=== PATIENT | female | born 1975 | race Caucasian/White ===

== ENCOUNTER 2018-12-19 22:10 | Emergency (ER) | payer MEDICARE, MEDICAID ==
[~2018-12-19] VITALS: Ht 147.3 cm; Wt 109.0 kg
[~2018-12-19 22:10] MED LIST: ASPI-1264 PO; CHOL200016 PO; CLON-527 PO; CYCLOBENZAPR PO; DIAZ2TAB PO; EXEN2VIA SQ; FAMO-1 PO; HYDR2TAB28 PO; LACT1CAP67 PO; LACT1CAP73 PO; LEVO25TA2 PO; LOP25T PO; MAG400T PO; MAGN100T3 PO; MAGN400C PO; METF1000 PO; METF500T7 PO; MOME17SP NS; MONT10TA21 PO; MONT5TAB12 PO; PANT-47 PO; POTA99TA15 PO; PYCNOGENOL PO; SYN0.025T PO
[2018-12-19 22:57] LABS: BASOPHILS % (AUTO) 0.3 % (0-1); EOSINOPHILS # (AUTO) 0.3 X10'3 (0-0.9); EOSINOPHILS % (AUTO) 2.4 % (0-6); HEMATOCRIT 46.6 % (35.0-45.0); HEMOGLOBIN 15.6 g/dl (12.0-16.0); LYMPHOCYTES # (AUTO) 2.3 X10'3 (1.1-4.8); LYMPHOCYTES % (AUTO) 16.7 % (21-51); MEAN CORPUSCULAR HEMOGLOBIN 30.7 PG (27.0-31.0); MEAN CORPUSCULAR HGB CONC 33.4 g/dL (33.0-36.5); MEAN CORPUSCULAR VOLUME 91.9 FL (78-98); MEAN PLATELET VOLUME 8.8 FL (7.4-10.4); MONOCYTES # (AUTO) 0.5 X10'3 (0-0.9); MONOCYTES % (AUTO) 3.9 % (2-12); NEUTROPHILS # (AUTO) 10.5 X10'3 (1.8-7.7); NEUTROPHILS % (AUTO) 76.7 % (42-75); PLATELET COUNT 296 X10'3 (140-440); RED BLOOD COUNT 5.07 X10'6 (4.20-5.60); RED CELL DISTRIBUTION WIDTH 13.8 % (11.5-14.5); WHITE BLOOD COUNT 13.7 X10'3 (4.5-11.0)
[2018-12-19] MEDS ORDERED: morphine 4 MG/ML inj SYRINge IV ONE (23:05)
[2018-12-19] MEDS ORDERED: ondansetron/PF 4mg/2ml inj IV ONE (23:05)
[2018-12-19 23:14] LABS: INR 0.9 INR; PARTIAL THROMBOPLASTIN TIME 26 SECONDS (22-32); PROTHROMBIN TIME 9.4 SECONDS (9.0-12.0)
[2018-12-19 23:15] LABS: ALANINE AMINOTRANSFERASE 109 U/L (12-78); ALBUMIN/GLOBULIN RATIO 1.1 (1.1-1.5); ALKALINE PHOSPHATASE 99 IU/L (46-116); ANION GAP 14 (8-16); ASPARTATE AMINO TRANSFERASE 177 U/L (10-37); BILIRUBIN,TOTAL 0.9 MG/DL (0.1-1.0); BLOOD UREA NITROGEN 19 MG/DL (7-18); BUN/CREATININE RATIO 16.5 (6.6-38.0); CALCIUM 9.1 MG/DL (8.5-10.1); CHLORIDE 100 MMOL/L (99-107); CREATININE 1.15 MG/DL (0.40-0.90); GLUCOSE 118 MG/DL (70-104); SODIUM 137 MMOL/L (135-145); TOTAL CARBON DIOXIDE 22.6 MMOL/L (24-32); TOTAL PROTEIN 7.8 G/DL (6.4-8.2); eGFR 52 ML/MIN
[2018-12-19 23:22] LABS: LIPASE 682 U/L (73-393)
[2018-12-19] MEDS ORDERED: normal saline 1000ml 1,000 ML IV ONE (23:40)
[2018-12-20] MEDS ORDERED: TRAM50TA2 PO (01:19)
[2018-12-20 02:51] VITALS: BP 144/77
[2018-12-21] MEDS ORDERED: ONDA8TAB6 PO (23:57)
== END 2018-12-20 02:52 | disposition home or self-care (01) ==
LOC: ER 22:11
DX: K85.90 Acute pancreatitis without necrosis or infection, unspecified (principal); K44.9 Diaphragmatic hernia without obstruction or gangrene; K21.9 Gastro-esophageal reflux disease without esophagitis; E11.9 Type 2 diabetes mellitus without complications; Z90.49 Acquired absence of other specified parts of digestive tract; Z98.51 Tubal ligation status; Z98.890 Other specified postprocedural states; Z88.1 Allergy status to other antibiotic agents; Z88.8 Allergy status to other drugs, medicaments and biological substances; Z79.82 Long term (current) use of aspirin; Z79.899 Other long term (current) drug therapy
CPT/HCPCS: 36415; 71045; 74176; 80053; 83690; 84484; 85025; 85610; 85730; 93005; 96374; 96375; 99284; J2270; J2405; J7030

== ENCOUNTER 2018-12-21 22:11 | Emergency (ER) | payer MEDICARE, MEDICAID ==
[~2018-12-21] VITALS: Ht 152.4 cm; Wt 106.0 kg
[~2018-12-21 22:11] MED LIST changes: +TRAM50TA2 PO
[2018-12-21 22:22] VITALS: BP 117/113
[2018-12-21 23:10] LABS: URINE HCG NEGATIVE (NEG)
[2018-12-21 23:22] LABS: CLARITY,URINE CLEAR (Clear); COLOR,URINE YELLOW (Yellow); GLUCOSE, URINE 500 mg/dl (Neg); KETONES,URINE 40 mg/dl (Neg); LEUKOCYTE ESTERASE ,URINE NEGATIVE (Neg); NITRITES, URINE NEGATIVE (Neg); OCCULT BLOOD,URINE MODERATE (Neg); PROTEIN,URINE NEGATIVE (Neg); UROBILINOGEN,URINE 0.2 E.U/dL (0.2-1.0)
[2018-12-21 23:23] LABS: UA COLLECTION TYPE CLN CATCH MIDSTREAM
[2018-12-21 23:24] LABS: ALANINE AMINOTRANSFERASE 213 U/L (12-78); ALBUMIN 3.7 G/DL (3.4-5.0); ALKALINE PHOSPHATASE 104 IU/L (46-116); AMYLASE 33 U/L (25-115); ANION GAP 16 (8-16); ASPARTATE AMINO TRANSFERASE 66 U/L (10-37); BILIRUBIN,TOTAL 0.5 MG/DL (0.1-1.0); BLOOD UREA NITROGEN 13 MG/DL (7-18); BUN/CREATININE RATIO 14.3 (6.6-38.0); CALCIUM 8.2 MG/DL (8.5-10.1); CHLORIDE 99 MMOL/L (99-107); CREATININE 0.91 MG/DL (0.40-0.90); GLUCOSE 71 MG/DL (70-104); LIPASE 197 U/L (73-393); SODIUM 136 MMOL/L (135-145); TOTAL CARBON DIOXIDE 21.4 MMOL/L (24-32); TOTAL PROTEIN 7.3 G/DL (6.4-8.2); eGFR 68 ML/MIN
[2018-12-21 23:27] LABS: BASOPHILS # (AUTO) 0.1 X10'3 (0-0.2); BASOPHILS % (AUTO) 0.7 % (0-1); EOSINOPHILS # (AUTO) 0.3 X10'3 (0-0.9); EOSINOPHILS % (AUTO) 4.2 % (0-6); HEMATOCRIT 41.9 % (35.0-45.0); HEMOGLOBIN 13.9 g/dl (12.0-16.0); LYMPHOCYTES # (AUTO) 2.6 X10'3 (1.1-4.8); LYMPHOCYTES % (AUTO) 34.3 % (21-51); MEAN CORPUSCULAR HEMOGLOBIN 30.5 PG (27.0-31.0); MEAN CORPUSCULAR HGB CONC 33.2 g/dL (33.0-36.5); MEAN CORPUSCULAR VOLUME 91.9 FL (78-98); MONOCYTES # (AUTO) 0.5 X10'3 (0-0.9); MONOCYTES % (AUTO) 6.8 % (2-12); NEUTROPHILS # (AUTO) 4.1 X10'3 (1.8-7.7); PLATELET COUNT 277 X10'3 (140-440); RED BLOOD COUNT 4.56 X10'6 (4.20-5.60); RED CELL DISTRIBUTION WIDTH 13.5 % (11.5-14.5); WHITE BLOOD COUNT 7.6 X10'3 (4.5-11.0)
[2018-12-21 23:28] LABS: PROTHROMBIN TIME 9.8 SECONDS (9.0-12.0)
[2018-12-21 23:45] LABS: BACTERIA,URINE FEW /HPF (Neg); MUCUS STRANDS FEW /LPF (Neg); RBC,URINE 0-2 /HPF (0-2); SQUAMOUS EPITHELIAL CELL,UR FEW /LPF (FEW); WBC,URINE 0-4 /HPF (0-4)
--- NOTE | 2018-12-21 23:51 | NUR ---
DR TELLEZ AT BEDSIDE WITH PT
[2018-12-21] MEDS ORDERED: ONDA8TAB6 PO (23:57)
[2018-12-22] MEDS ORDERED: ondansetron 4mg rapidly disintigrating tab PO ONE
== END 2018-12-22 00:09 | disposition home or self-care (01) ==
LOC: ER 22:11
DX: R10.9 Unspecified abdominal pain (principal); R11.0 Nausea; E11.9 Type 2 diabetes mellitus without complications; Z90.49 Acquired absence of other specified parts of digestive tract; Z98.51 Tubal ligation status; Z98.890 Other specified postprocedural states; Z88.1 Allergy status to other antibiotic agents; Z88.6 Allergy status to analgesic agent; Z88.8 Allergy status to other drugs, medicaments and biological substances; Z79.82 Long term (current) use of aspirin; Z79.84 Long term (current) use of oral hypoglycemic drugs; Z79.899 Other long term (current) drug therapy
CPT/HCPCS: 36415; 80053; 81001; 81025; 82150; 83690; 85025; 85610; 99283

== ENCOUNTER 2019-11-28 23:48 | Emergency (ER) | payer MEDICARE, MEDICAID ==
[~2019-11-28] VITALS: Ht 148.6 cm; Wt 101.4 kg
[~2019-11-28 23:48] MED LIST changes: +ADV50250 IH; -ASPI-1264 PO; +ASPI-611 PO; +CYCL-1 PO; -CYCLOBENZAPR PO; -DIAZ2TAB PO; +EMPA10TA PO; -EXEN2VIA SQ; -FAMO-1 PO; -HYDR2TAB28 PO; +LACT1CAP65 PO; -LACT1CAP67 PO; -LACT1CAP73 PO; -LEVO25TA2 PO; +LIOT5TAB10 PO; +LISI-600 PO; -LOP25T PO; -MAG400T PO; -MAGN100T3 PO; +MELO-102 PO; -METF1000 PO; +METF500T PO; -METF500T7 PO; -MOME17SP NS; -MONT5TAB12 PO; -PANT-47 PO; -POTA99TA15 PO; -PYCNOGENOL PO; +RANI150T8 PO; -SYN0.025T PO
--- NOTE | 2019-11-29 00:31 | NUR ---
while I was triaging this pt Dr Akins placed ordered on the chart. I asked him if he wanted me to put in a trop and he said he was signing it out to dr latif
[2019-11-29 01:31] VITALS: BP 139/88
--- NOTE | 2019-11-29 01:39 | NUR ---
assumed care from Jose De Jesus HLIL no questions or concerns after assuming care
--- NOTE | 2019-11-29 01:40 | NUR ---
dr. latif at bedside discussing hear score with patient, patients rr even un labored no observable s/s of acute stress / pain at this time will continue to monitor
== END 2019-11-29 02:32 | disposition home or self-care (01) ==
LOC: ER 23:49
DX: R07.89 Other chest pain (principal); I10 Essential (primary) hypertension; E11.9 Type 2 diabetes mellitus without complications; Z90.49 Acquired absence of other specified parts of digestive tract; Z98.890 Other specified postprocedural states; Z98.51 Tubal ligation status; Z88.1 Allergy status to other antibiotic agents; Z88.6 Allergy status to analgesic agent; Z79.82 Long term (current) use of aspirin; Z79.899 Other long term (current) drug therapy
CPT/HCPCS: 71046; 82948; 93005; 99283

== ENCOUNTER 2020-09-18 18:47 | Emergency (ER) | payer MEDICARE, MEDICAID ==
[~2020-09-18] VITALS: Ht 152.4 cm; Wt 106.2 kg
[2020-09-18] MEDS ORDERED: aspirin 81mg tab.chew PO ONE (19:05)
[2020-09-18 19:32] LABS: BASOPHILS # (AUTO) 0.1 X10'3 (0-0.2); BASOPHILS % (AUTO) 1.1 % (0-1); EOSINOPHILS # (AUTO) 0.6 X10'3 (0-0.9); EOSINOPHILS % (AUTO) 5.7 % (0-6); HEMATOCRIT 42.3 % (35.0-45.0); HEMOGLOBIN 14.1 g/dl (12.0-16.0); LYMPHOCYTES # (AUTO) 3.2 X10'3 (1.1-4.8); LYMPHOCYTES % (AUTO) 29.9 % (21-51); MEAN CORPUSCULAR HEMOGLOBIN 30.6 PG (27.0-31.0); MEAN CORPUSCULAR HGB CONC 33.3 g/dL (33.0-36.5); MEAN CORPUSCULAR VOLUME 91.7 FL (78-98); MEAN PLATELET VOLUME 8.7 FL (7.4-10.4); MONOCYTES # (AUTO) 0.6 X10'3 (0-0.9); MONOCYTES % (AUTO) 5.3 % (2-12); NEUTROPHILS # (AUTO) 6.3 X10'3 (1.8-7.7); PLATELET COUNT 272 X10'3 (140-440); RED BLOOD COUNT 4.61 X10'6 (4.20-5.60); RED CELL DISTRIBUTION WIDTH 12.8 % (11.5-14.5); WHITE BLOOD COUNT 10.8 X10'3 (4.5-11.0)
[2020-09-18 19:44] LABS: PARTIAL THROMBOPLASTIN TIME 26 SECONDS (22-32)
[2020-09-18 19:49] LABS: ALANINE AMINOTRANSFERASE 64 U/L (12-78); ALBUMIN 3.8 G/DL (3.4-5.0); ALKALINE PHOSPHATASE 69 IU/L (46-116); ANION GAP 8 (8-16); ASPARTATE AMINO TRANSFERASE 32 U/L (10-37); BILIRUBIN,TOTAL 0.3 MG/DL (0.1-1.0); BLOOD UREA NITROGEN 13 MG/DL (7-18); BUN/CREATININE RATIO 14.6 (6.6-38.0); CALCIUM 8.6 MG/DL (8.5-10.1); CHLORIDE 100 MMOL/L (99-107); CREATININE 0.89 MG/DL (0.40-0.90); GLUCOSE 115 MG/DL (70-104); POTASSIUM 4.2 MMOL/L (3.5-5.1); SODIUM 132 MMOL/L (135-145); TOTAL CARBON DIOXIDE 24.2 MMOL/L (24-32); TOTAL PROTEIN 7.6 G/DL (6.4-8.2); eGFR 69 ML/MIN
[2020-09-18 20:20] VITALS: BP 155/99
== END 2020-09-18 20:20 | disposition home or self-care (01) ==
LOC: ER 18:48
DX: R07.9 Chest pain, unspecified (principal); I10 Essential (primary) hypertension; K85.90 Acute pancreatitis without necrosis or infection, unspecified; E11.9 Type 2 diabetes mellitus without complications; K59.00 Constipation, unspecified; F41.9 Anxiety disorder, unspecified; K46.9 Unspecified abdominal hernia without obstruction or gangrene; Z98.890 Other specified postprocedural states; Z88.1 Allergy status to other antibiotic agents; Z88.8 Allergy status to other drugs, medicaments and biological substances; Z88.6 Allergy status to analgesic agent
CPT/HCPCS: 36415; 71045; 80053; 83880; 84484; 85025; 85610; 85730; 93005; 99285

== ENCOUNTER 2021-10-04 19:21 | Inpatient (IN) | payer MEDICARE, MEDICAID ==
[~2021-10-04] VITALS: Ht 157.5 cm; Wt 102.0 kg
[~2021-10-04 19:21] MED LIST changes: -LISI-600 PO; +LISI20TA28 PO
[2021-10-04 20:12] LABS: BASOPHILS # (AUTO) 0.1 X10'3 (0-0.2); EOSINOPHILS # (AUTO) 0.3 X10'3 (0-0.9); MEAN CORPUSCULAR HEMOGLOBIN 30.9 PG (27.0-31.0); RED CELL DISTRIBUTION WIDTH 13.1 % (11.5-14.5)
[2021-10-04 20:13] LABS: BASOPHILS % (AUTO) 1.2 % (0-1); EOSINOPHILS % (AUTO) 3.4 % (0-6); HEMATOCRIT 43.2 % (35.0-45.0); HEMOGLOBIN 14.5 g/dl (12.0-16.0); LYMPHOCYTES # (AUTO) 3.4 X10'3 (1.1-4.8); LYMPHOCYTES % (AUTO) 38.7 % (21-51); MEAN CORPUSCULAR HGB CONC 33.6 g/dL (33.0-36.5); MEAN PLATELET VOLUME 9.8 FL (7.4-10.4); MONOCYTES # (AUTO) 0.5 X10'3 (0-0.9); MONOCYTES % (AUTO) 5.5 % (2-12); NEUTROPHILS # (AUTO) 4.4 X10'3 (1.8-7.7); NEUTROPHILS % (AUTO) 51.2 % (42-75); PLATELET COUNT 127 X10'3 (140-440); RED BLOOD COUNT 4.69 X10'6 (4.20-5.60); WHITE BLOOD COUNT 8.7 X10'3 (4.5-11.0)
[2021-10-04 20:18] LABS: ALANINE AMINOTRANSFERASE 49 U/L (12-78); ALBUMIN 3.7 G/DL (3.4-5.0); ALBUMIN/GLOBULIN RATIO 1.1 (1.1-1.5); ALKALINE PHOSPHATASE 53 IU/L (46-116); ANION GAP 13 (8-16); ASPARTATE AMINO TRANSFERASE 27 U/L (10-37); BILIRUBIN,TOTAL 0.3 MG/DL (0.1-1.0); BLOOD UREA NITROGEN 14 MG/DL (7-18); BUN/CREATININE RATIO 14.6 (6.6-38.0); CALCIUM 8.7 MG/DL (8.5-10.1); CHLORIDE 103 MMOL/L (99-107); CREATININE 0.96 MG/DL (0.40-0.90); GLUCOSE 185 MG/DL (70-104); POTASSIUM 4.2 MMOL/L (3.5-5.1); SODIUM 138 MMOL/L (135-145); TOTAL CARBON DIOXIDE 22.5 MMOL/L (24-32); TOTAL PROTEIN 7.1 G/DL (6.4-8.2); eGFR 63 ML/MIN
[2021-10-04] MEDS ORDERED: iohexol 350MG/ML 100ml bottle IV ONE (20:35)
[2021-10-04] MEDS ORDERED: clopidogrel 300mg tablet PO ONE (20:35)
[2021-10-04] MEDS ORDERED: temazepam 15mg capsule PO PRN (21:00)
[2021-10-04] MEDS ORDERED: HYDROcodone/acetaminophen 10/325mg tab PO PRN (21:10)
[2021-10-04] MEDS ORDERED: ondansetron 4mg rapidly disintigrating tab PO PRN (21:10)
[2021-10-04] MEDS ORDERED: mag hydrox/Alum hydrox/simeth 30ml oral suspension PO PRN (21:10)
[2021-10-04] MEDS ORDERED: diphenhydrAMINE 50 mg/ml inj IV PRN (21:10)
[2021-10-04] MEDS ORDERED: morphine 2 MG/ML inj. syringe IV PRN ×2 (21:10)
[2021-10-04] MEDS ORDERED: diphenhydrAMINE 25mg capsule PO PRN (21:10)
[2021-10-04] MEDS ORDERED: magnesium hydroxide 30ml (MOM) UD suspension PO PRN (21:10)
[2021-10-04] MEDS ORDERED: acetaminophen 650mg rectal suppository RC PRN (21:10)
[2021-10-04] MEDS ORDERED: HYDROmorphone inj. 0.5 MG/0.5 ML DISP.SYRIN IV PRN (21:10)
[2021-10-04] MEDS ORDERED: ondansetron/PF 4mg/2ml inj IV PRN (21:10)
[2021-10-04] MEDS ORDERED: acetaminophen 325mg tablet PO PRN ×2 (21:10)
[2021-10-04] MEDS ORDERED: bisacodyl 10mg suppository rectal RC PRN (21:10)
[2021-10-04] MEDS ORDERED: HYDROcodone/acetaminophen 5mg/325mg tablet PO PRN (21:10)
[2021-10-04 21:32] LABS: HEMOGLOBIN A1C 6.6 % (4.5-6.2)
[2021-10-04] MEDS ORDERED: EXEN2AUT SQ (21:32)
[2021-10-04] MEDS ORDERED: PROG200C11 PO (21:32)
[2021-10-04] MEDS ORDERED: FAMO40TA8 PO (21:32)
[2021-10-04] MEDS ORDERED: ESTR2TAB6 PO (21:32)
[2021-10-04] MEDS ORDERED: METF-900 PO (21:32)
[2021-10-04] MEDS ORDERED: CLON-369 PO (21:32)
[2021-10-04 21:39] LABS: CREATINE KINASE 51 U/L (26-192); LIPASE 266 U/L (73-393); MAGNESIUM 2.2 MG/DL (1.5-2.4)
[2021-10-04] MEDS ORDERED: proCHLORperazine 10 MG/2 ml inj IV ONE (21:55)
[2021-10-04] MEDS: normal saline 1000ml 1,000 ML IV SCH (22:10)
[2021-10-04 22:14] LABS: PARTIAL THROMBOPLASTIN TIME 26 SECONDS (22-32)
[2021-10-04] MEDS: MESSAGE TO NURSING PO NR (22:33)
[2021-10-04] MEDS ORDERED: clonazePAM 0.5mg tablet PO PRN (23:35)
[2021-10-05 01:41] LABS: ALANINE AMINOTRANSFERASE 45 U/L (12-78); ALBUMIN 3.5 G/DL (3.4-5.0); ALKALINE PHOSPHATASE 52 IU/L (46-116); ANION GAP 13 (8-16); ASPARTATE AMINO TRANSFERASE 27 U/L (10-37); BILIRUBIN,TOTAL 0.2 MG/DL (0.1-1.0); BLOOD UREA NITROGEN 14 MG/DL (7-18); BUN/CREATININE RATIO 14.1 (6.6-38.0); CALCIUM 8.4 MG/DL (8.5-10.1); CHLORIDE 105 MMOL/L (99-107); CHOL/HDL RATIO 3.4 (0.00-4.99); CHOLESTEROL 169 MG/DL (0-200); CREATININE 0.99 MG/DL (0.40-0.90); GLUCOSE 154 MG/DL (70-104); HDL CHOLESTEROL 49 MG/DL (35-60); LDL CHOLESTEROL 94 MG/DL (50-100); SODIUM 139 MMOL/L (135-145); TOTAL CARBON DIOXIDE 21.4 MMOL/L (24-32); TRIGLYCERIDES 196 MG/DL (20-135); eGFR 61 ML/MIN
[2021-10-05 01:42] LABS: POTASSIUM 4.3 MMOL/L (3.5-5.1)
[2021-10-05 02:52] LABS: BASOPHILS # (AUTO) 0.1 X10'3 (0-0.2); BASOPHILS % (AUTO) 0.5 % (0-1); EOSINOPHILS # (AUTO) 0.2 X10'3 (0-0.9); HEMATOCRIT 41.7 % (35.0-45.0); HEMOGLOBIN 13.7 g/dl (12.0-16.0); LYMPHOCYTES # (AUTO) 1.9 X10'3 (1.1-4.8); LYMPHOCYTES % (AUTO) 19.8 % (21-51); MEAN CORPUSCULAR HEMOGLOBIN 30.5 PG (27.0-31.0); MEAN CORPUSCULAR HGB CONC 32.9 g/dL (33.0-36.5); MEAN CORPUSCULAR VOLUME 92.5 FL (78-98); MEAN PLATELET VOLUME 8.3 FL (7.4-10.4); MONOCYTES # (AUTO) 0.5 X10'3 (0-0.9); MONOCYTES % (AUTO) 5.5 % (2-12); NEUTROPHILS # (AUTO) 6.9 X10'3 (1.8-7.7); NEUTROPHILS % (AUTO) 72.2 % (42-75); PLATELET COUNT 266 X10'3 (140-440); RED BLOOD COUNT 4.51 X10'6 (4.20-5.60); RED CELL DISTRIBUTION WIDTH 13.2 % (11.5-14.5); WHITE BLOOD COUNT 9.6 X10'3 (4.5-11.0)
[2021-10-05] MEDS: normal saline 1000ml 1,000 ML IV SCH ×2 (07:10→17:10)
[2021-10-05] MEDS ORDERED: pantoprazole 40mg Tablet.DR PO SCH ×2 (07:30)
[2021-10-05] MEDS: aspirin 81mg, enteric-coated 1 TAB TABLET.DR PO SCH (08:22)
[2021-10-05] MEDS: heparin, porcine 5000 units/ml vial SQ SCH ×3 (08:22→18:40)
[2021-10-05] MEDS: docusate sod 100mg capsule PO SCH ×2 (08:23→20:00)
[2021-10-05] MEDS: atorvastatin 20mg tablet PO SCH (08:27)
[2021-10-05] MEDS: montelukast 10mg tablet PO SCH (08:27)
[2021-10-05] MEDS: cyclobenzaprine 10mg tablet PO SCH ×4 (08:28→21:00)
[2021-10-05] MEDS: famotidine 20mg tablet PO SCH ×2 (08:28→20:33)
[2021-10-05] MEDS: MESSAGE TO NURSING PO NR (08:50)
--- NOTE | 2021-10-05 11:11 | NUR ---
echo at bedside
[2021-10-05] MEDS: clopidogrel 75mg tablet PO SCH (18:38)
[2021-10-06] MEDS: heparin, porcine 5000 units/ml vial SQ SCH ×2 (01:35→10:48)
[2021-10-06 03:40] LABS: BASOPHILS # (AUTO) 0.1 X10'3 (0-0.2); BASOPHILS % (AUTO) 0.9 % (0-1); EOSINOPHILS # (AUTO) 0.2 X10'3 (0-0.9); EOSINOPHILS % (AUTO) 1.9 % (0-6); HEMATOCRIT 42.1 % (35.0-45.0); HEMOGLOBIN 14.2 g/dl (12.0-16.0); LYMPHOCYTES # (AUTO) 3.7 X10'3 (1.1-4.8); MEAN CORPUSCULAR HGB CONC 33.7 g/dL (33.0-36.5); MEAN CORPUSCULAR VOLUME 91.9 FL (78-98); MEAN PLATELET VOLUME 8.1 FL (7.4-10.4); MONOCYTES # (AUTO) 0.7 X10'3 (0-0.9); MONOCYTES % (AUTO) 8.3 % (2-12); NEUTROPHILS # (AUTO) 4.2 X10'3 (1.8-7.7); NEUTROPHILS % (AUTO) 46.9 % (42-75); PLATELET COUNT 276 X10'3 (140-440); RED BLOOD COUNT 4.58 X10'6 (4.20-5.60); RED CELL DISTRIBUTION WIDTH 13.4 % (11.5-14.5); WHITE BLOOD COUNT 8.9 X10'3 (4.5-11.0)
[2021-10-06 03:54] LABS: ALANINE AMINOTRANSFERASE 45 U/L (12-78); ALBUMIN 3.6 G/DL (3.4-5.0); ALBUMIN/GLOBULIN RATIO 1.1 (1.1-1.5); ALKALINE PHOSPHATASE 53 IU/L (46-116); ANION GAP 12 (8-16); ASPARTATE AMINO TRANSFERASE 21 U/L (10-37); BILIRUBIN,TOTAL 0.3 MG/DL (0.1-1.0); BLOOD UREA NITROGEN 17 MG/DL (7-18); CALCIUM 8.9 MG/DL (8.5-10.1); CHLORIDE 106 MMOL/L (99-107); GLUCOSE 138 MG/DL (70-104); POTASSIUM 4.2 MMOL/L (3.5-5.1); SODIUM 141 MMOL/L (135-145); TOTAL CARBON DIOXIDE 22.8 MMOL/L (24-32); eGFR 60 ML/MIN
[2021-10-06 07:53] VITALS: BP 144/98
[2021-10-06] MEDS: aspirin 81mg, enteric-coated 1 TAB TABLET.DR PO SCH (08:00)
[2021-10-06] MEDS: docusate sod 100mg capsule PO SCH (08:00)
[2021-10-06] MEDS: montelukast 10mg tablet PO SCH (08:00)
[2021-10-06] MEDS: clopidogrel 75mg tablet PO SCH (10:42)
[2021-10-06] MEDS: famotidine 20mg tablet PO SCH (10:44)
[2021-10-06] MEDS: cyclobenzaprine 10mg tablet PO SCH (10:45)
[2021-10-06] MEDS: atorvastatin 20mg tablet PO SCH (10:46)
[2021-10-06] MEDS: MESSAGE TO NURSING PO NR (10:52)
[2021-10-06 11:00] VITALS: BP 167/98
[2021-10-06] MEDS: normal saline 1000ml 1,000 ML IV SCH (12:01)
[2021-10-06] MEDS ORDERED: ATOR20TA66 PO (12:10)
[2021-10-06] MEDS ORDERED: CLOP75TA34 PO (12:10)
== END 2021-10-06 13:35 | disposition home or self-care (01) | DRG 64 ==
LOC: ER 19:22 → ED HOLD 21:13 → EDBEDREQ 10-05 19:45 → PCU 3S 10-06 07:30
PROVIDERS: ADMIT Family Medicine; ATTEND Internal Medicine
PROC: B3251ZZ Computerized Tomography (CT Scan) of Bilateral Common Carotid Arteries using Low Osmolar Contrast (ICD-10-PCS; 2021-10-04)
PROC: B32G1ZZ Computerized Tomography (CT Scan) of Bilateral Vertebral Arteries using Low Osmolar Contrast (ICD-10-PCS; 2021-10-04)
PROC: B32R1ZZ Computerized Tomography (CT Scan) of Intracranial Arteries using Low Osmolar Contrast (ICD-10-PCS; 2021-10-04)
PROC: B3281ZZ Computerized Tomography (CT Scan) of Bilateral Internal Carotid Arteries using Low Osmolar Contrast (ICD-10-PCS; 2021-10-04)
PROC: 5A09357 Assistance with Respiratory Ventilation, Less than 24 Consecutive Hours, Continuous Positive Airway Pressure (ICD-10-PCS; principal; 2021-10-05)
DX: I63.9 Cerebral infarction, unspecified (principal); I50.33 Acute on chronic diastolic (congestive) heart failure; Z68.43 Body mass index [BMI] 50.0-59.9, adult; G81.91 Hemiplegia, unspecified affecting right dominant side; E66.01 Morbid (severe) obesity due to excess calories; I11.0 Hypertensive heart disease with heart failure; E03.9 Hypothyroidism, unspecified; R29.701 NIHSS score 1; D69.6 Thrombocytopenia, unspecified; G43.109 Migraine with aura, not intractable, without status migrainosus; E11.65 Type 2 diabetes mellitus with hyperglycemia; E78.5 Hyperlipidemia, unspecified; G47.33 Obstructive sleep apnea (adult) (pediatric); K21.9 Gastro-esophageal reflux disease without esophagitis; R29.810 Facial weakness; F41.9 Anxiety disorder, unspecified; Z88.8 Allergy status to other drugs, medicaments and biological substances; Z90.49 Acquired absence of other specified parts of digestive tract; Z98.51 Tubal ligation status; Z79.899 Other long term (current) drug therapy; Z79.82 Long term (current) use of aspirin; Z98.891 History of uterine scar from previous surgery
CPT/HCPCS: 36415; 70450; 70496; 70498; 71045; 80053; 80061; 82550; 82948; 83036; 83690; 83735; 83880; 84100; 84484; 85025; 85610; 85730; 86885; 86900; 86901; 93005; 93306; 94660; 94760; 99285; G0378; J0780; J1644; J7030; Q9967

== ENCOUNTER 2025-07-02 12:11 | Emergency (ER) | payer MEDICARE, MEDICAID ==
[~2025-07-02] VITALS: Ht 147.3 cm; Wt 93.0 kg
[~2025-07-02 12:11] MED LIST changes: -ADV50250 IH; +ATOR20TA66 PO; -CHOL200016 PO; +CLON-369 PO; -CLON-527 PO; +CLOP75TA34 PO; -CYCL-1 PO; +FAMO40TA8 PO; -LACT1CAP65 PO; -LIOT5TAB10 PO; -MAGN400C PO; +METF-900 PO; -METF500T PO; +MONT-48 PO; -MONT10TA21 PO; -RANI150T8 PO; -TRAM50TA2 PO
--- NOTE | 2025-07-02 13:02 | Physician Documentation ---
History of Present Illness Chief Complaint: Abdominal Pain Stated Complaint: ABD PAIN Primary Medical Doctor: Dr Jose De Jesus Bryan @ [facility] Patient is a pleasant 50-year-old female that presents to the emergency department for back pain radiating to her abdomen. She reports that she usually has approximately 3 episodes of this year. Reports that the episodes usually resolve and are not progressive over the course of the week. Patient reports that she has burning in her flanks and has been experiencing some nausea. Denies any dysuria fevers congestion hematemesis hematuria or any blood in her stool. Patient reports significant discomfort. Patient denies any chest pain or shortness of breath or nausea or vomiting or diarrhea. Patient states this type of pain has been going on for the last 20 years or so off and on. She is working with a GI specialist and just recently had an upper endoscopy. Medication Reconciliation Allergies: Coded Allergies: clindamycin (Verified Allergy, Unknown, 07/02/25) gluten (Unverified Allergy, Unknown, 07/02/25) ketorolac (Verified Allergy, Unknown, 07/02/25) Scheduled Aspirin (Aspir 81), 1 TAB PO DAILY, (Reported) Atorvastatin Calcium (Atorvastatin Calcium), 40 MG PO DAILY Clopidogrel Bisulfate (Clopidogrel), 75 MG PO DAILY Empagliflozin (Jardiance), 1 TAB PO DAILY, (Reported) Famotidine (Famotidine), 1 TAB PO BID, (Reported) Lisinopril (Lisinopril), 0.5 TAB PO HS, (Reported) Meloxicam (Meloxicam), 1 TAB PO HS, (Reported) Metformin Hcl* (Metformin ER*), 2 TAB PO BID, (Reported) Montelukast Sodium (Singulair), 1 TAB PO DAILY, (Reported) Scheduled PRN Clonazepam (Clonazepam), 1 TAB PO DAILY PRN for for anxiety/agitation, (Re ported) Past Medical History Past Medical History: Migraine, *CARDIOVASCULAR*, Hypertension, *GI/HEPATOBILIARY*, Constipation, Pancreatitis, Hernia, Diabetes, Thyroid (unspecified), *PSYCH*, Anxiety Past Surgical History: cholecystectomy, , orthopedic surgeries, tubal ligation Alcohol Use: None Drug Use: none Lives with: Family Lives In: Home Occupation: disabled Review of Systems Constitutional: Denies: chills, fever, weakness Eyes: Denies: pain, blurred vision ENT: Denies: ear pain, nose pain, throat pain, mouth pain Respiratory: Denies: cough, shortness of breath Cardiovascular: Denies: chest pain, palpitations Gastrointestinal: Denies: abdominal pain, nausea, vomiting Genitourinary: Denies: burning, dysuria Female Genitalia: Denies: vaginal discharge, pelvic pain Neurological: Denies: headache, dizziness Musculoskeletal: Denies: pain, swelling Integumentary: Denies: rash, lesions Allergic/Immunologic: Denies: hives, itching Hematologic/Lymphatic: Denies: no symptoms reported Psychiatric: Denies: depression, anxiety Physical Exam Vital Signs: Temperature: 97.6, Source: Temporal, Heart Rate: 75, Respiratory Rate: 16, BP: 151/105, Pulse Oximetry: 99, Weight: 93.000 Oxygen Flow Rate: 0 Physical Exam General: Awake and Alert, no acute distress. HEENT: Conjunctiva pink, Sclera clear, Mucus Membranes moist. Neck: Supple without masses and tenderness. Resp: Unlabored. Lungs clear to auscultation bilaterally. Heart: Regular Rate and rhythm, normal S1 and S2 without murmur, rub or gallop. Abdomen: Abdomen on exam patient has mild diffuse tenderness in all quadrants without any rebound and without guarding and abdomen is soft and nondistended and no masses. Extremities: No cyanosis,clubbing or edema. Skin: Warm and Dry. Progress Results/Orders Results/Orders Vital Signs 07/02/25 12:33 Temp 97.6 Pulse 75 Resp 16 B/P (MAP) 151/105 Pulse Ox 99 O2 Flow Rate 0 EKG/XRAY/CT/US/VASC/MRI CT : Impression CAT SCAN Patient: RADHA LEAM Medical Record: [id number] [facility] : 1975, Age: 50 Sex: Female Location: ER Patient Status: REG ER Service Date/Time: 07/02/251515 Ordering Physician: KEVON NIETO PAC Exam: CT ABDOMEN PELVIS EXAM: CT CT ABDOMEN PELVIS W/ IV CONTRAST HISTORY: upper abd pain COMPARISON: None TECHNIQUE: Helical CT images of the abdomen and pelvis were performed with 100 mL omnipaque 300 IV contrast. Sagittal and coronal reformatted images were obtained. This CT exam was performed using 1 or more of the following dose reduction techniques: Automated exposure control, adjustment of the mA and/or kv according to patient size, or the use of iterative reconstruction techniques. Radiation Dose Information: CT Dose: CTDI volume is 33.59 mGy. Dose-length product is 1893.26 mGy*cm FINDINGS: CT abdomen: The lung bases are clear. The heart is not enlarged. The gallbladder is surgically absent. The liver, spleen, pancreas, kidneys, and adrenal glands are unremarkable. No abdominal aortic aneurysm or dissection. CT pelvis: No abnormal bowel dilatation, free air, or free fluid. The appendix, uterus, and urinary bladder are unremarkable. There is ventral midline pelvic wall fatty hernia with neck measuring 12 mm transverse (images 102-107, series 2). There is a lumbosacral transitional vertebrae. There is moderate lumbar degenerative disc disease and facet arthropathy. IMPRESSION: 1. Postoperative changes of cholecystectomy. 2. Small fatty ventral midline pelvic wall hernia. 3. No evidence of bowel obstruction, acute appendicitis, or other acute process in the abdomen or pelvis. Electronically Signed by:HOLLY IRENE MD Date & Time: 07/02/251622 Dictated by: HOLLY IRENE MD Dictation date and time: 07/02/251622 Primary Care Provider: NO PRIMARY CARE PROVIDER cc: KEVON NIETO PAC ~ Medical Decision Making Findings Patient is a pleasant 50-year-old female that presents to the emergency department for back pain radiating to her abdomen. She reports that she usually has approximately 3 episodes of this year. Reports that the episodes usually resolve and are not progressive over the course of the week. Patient reports that she has burning in her flanks and has been experiencing some nausea. Denies any dysuria fevers congestion hematemesis hematuria or any blood in her stool. Patient reports significant discomfort. Patient denies any chest pain or shortness of breath or nausea or vomiting or diarrhea. Patient states this type of pain has been going on for the last 20 years or so off and on. She is working with a GI specialist and just recently had an upper endoscopy. Patient did have relatively benign labs that were largely unremarkable other than mild leukocytosis. Patient did have elevation of her eosinophil count. Patient was given a L of normal saline as well as morphine 4 mg IV and patient states her symptoms are significantly improved. Patient did have CT scan of the abdomen that showed no significant abnormalities. Prescription of Bentyl sent to patient's pharmacy to be taken as prescribed. Patient will follow up with primary care in 3-5 days if no better as needed sooner. Continue close follow up with GI specialist. Return to ED with any worsening, concerning or changing symptoms. Departure Disposition: HOME / SELF CARE / HOMELESS Impression: Primary Impression: Abdominal pain Qualified Codes: R10.13 - Epigastric pain Condition: Improved Discharge Instructions: Abdominal Pain (Nonspecific) Additional Instructions: Patient did have relatively benign labs that were largely unremarkable other than mild leukocytosis. Patient did have elevation of her eosinophil count. Patient was given a L of normal saline as well as morphine 4 mg IV and patient states her symptoms are significantly improved. Patient did have CT scan of the abdomen that showed no significant abnormalities. Prescription of Bentyl sent to patient's pharmacy to be taken as prescribed. Patient will follow up with primary care in 3-5 days if no better as needed sooner. Continue close follow up with GI specialist. Return to ED with any worsening, concerning or changing symptoms. Referrals: NO PRIMARY CARE PROVIDER (PCP) Prescriptions Dicyclomine HCl (Dicyclomine HCl) 20 Mg Tablet 1 TAB PO Q6H for irritable bowel symptoms for 15 Days, #60 TAB 0 Refills Prov: KEVON NIETO 07/02/25 Signature Scribe Signature: No scribe Attestation: No scribe EVE BULLARDP Jul 02, 2025 13:02 KEVON NIETO Jul 02, 2025 16:36
--- NOTE | 2025-07-02 13:15 | ELECTROCARDIOGRAPH REPORT ---
[facility] Test Date: 2025-07-02 Test Time: 13:13:08 Pat Name: RADHA LEMA Department: EMERGENCY ROOM Room: Gender: F Head Housekeeper: ARMINDA : 1975 Requested By: EVE BULLARD Order Number: [id number] Reading MD: Measurements Intervals Saxis Rate: 71 P: 23 OR: 145 QRS: 14 QRSD: 90 T: 45 QT: 383 QTc: 417 Interpretive Statements Sinus rhythm Please click the below link to view image of tracing.
[2025-07-02 14:00] LABS: CREATININE 0.98 MG/DL (0.40-0.90); TOTAL CARBON DIOXIDE 27.9 MMOL/L (24-32); eCRCL 45 ML/MIN; eGFR 60 ML/MIN
[2025-07-02 14:28] LABS: URINE HCG NEGATIVE (NEG)
[2025-07-02 15:15] LABS: MEAN PLATELET VOLUME 9.7 FL (7.4-10.4); RED CELL DISTRIBUTION WIDTH 14.0 % (11.5-14.5)
[2025-07-02] MEDS ORDERED: iohexol 300mg/ml 100ml inj. ONE (15:37)
[2025-07-02] MEDS: morphine 4 MG/ML inj SYRINge IV STA (15:40)
[2025-07-02] MEDS: acetaminophen 1,000mg/100ml IV 100 ML IV STA (15:57)
[2025-07-02] MEDS: normal saline 1000ml 1,000 ML IV STA (15:57)
[2025-07-02 15:59] LABS: EOSINOPHILS % (MANUAL) 31.0 % (0-6); LYMPHOCYTES % (MANUAL) 21.0 % (21-51); MONOCYTES % (MANUAL) 8.0 % (2-12); NEUTROPHILS % (MANUAL) 40.0 % (42-75)
[2025-07-02 16:00] LABS: PLATELET ESTIMATE NORMAL
--- NOTE | 2025-07-02 16:26 | RADIOLOGY REPORT ---
EXAM: CT CT ABDOMEN PELVIS W/ IV CONTRAST HISTORY: upper abd pain COMPARISON: None TECHNIQUE: Helical CT images of the abdomen and pelvis were performed with 100 mL omnipaque 300 IV co ntrast. Sagittal and coronal reformatted images were obtained. This CT exam was performed using 1 or more of the following dose reduction techniques: Automated exposure control, adjustment of the mA and /or kv according to patient size, or the use of iterative reconstruction techniques. Radiation Dose Information: CT Dose: CTDI volume is 33.59 mGy. Dose-length product is 1893.26 mGy*cm FINDINGS: CT abdomen: The lung bases are clear. The heart is not enlarged. The gallbladder is surgically absent . The liver, spleen, pancreas, kidneys, and adrenal glands are unremarkable. No abdominal aortic aneu rysm or dissection. CT pelvis: No abnormal bowel dilatation, free air, or free fluid. The appendix, uterus, and urinary b ladder are unremarkable. There is ventral midline pelvic wall fatty hernia with neck measuring 12 mm transverse (images 102-107, series 2). There is a lumbosacral transitional vertebrae. There is moder ate lumbar degenerative disc disease and facet arthropathy. IMPRESSION: 1. Postoperative changes of cholecystectomy. 2. Small fatty ventral midline pelvic wall hernia. 3. No evidence of bowel obstruction, acute appendicitis, or other acute process in the abdomen or pel vis.
[2025-07-02 17:02] VITALS: TEMP 98.2
[2025-07-02] MEDS ORDERED: DICY20TA17 PO (17:19)
[2025-07-02 17:40] VITALS: BP 130/69; PULSE 67; RESP 15; O2SAT 100
== END 2025-07-02 17:43 | disposition home or self-care (01) ==
LOC: ER 12:11
DX: R10.84 Generalized abdominal pain (principal); R11.0 Nausea; M54.9 Dorsalgia, unspecified; E11.9 Type 2 diabetes mellitus without complications; I10 Essential (primary) hypertension; Z88.1 Allergy status to other antibiotic agents; Z88.8 Allergy status to other drugs, medicaments and biological substances; Z90.49 Acquired absence of other specified parts of digestive tract; Z98.51 Tubal ligation status
CPT/HCPCS: 36415; 74177; 80053; 81025; 83605; 83690; 84145; 85025; 93005; 96365; 96375; 99285; J0131; J2270; J7030; Q9967; 85007

== ENCOUNTER 2025-10-01 00:39 | Emergency (ER) | payer MEDICARE, MEDICAID ==
[~2025-10-01] VITALS: Ht 147.3 cm; Wt 93.9 kg
[~2025-10-01 00:39] MED LIST changes: +DICY20TA17 PO
[2025-10-01] MEDS: HYDROcodone/acetaminophen 5mg/325mg tablet PO STA (01:27)
--- NOTE | 2025-10-01 01:27 | RADIOLOGY REPORT ---
EXAM: DI ANKLE, COMPLETE(3VW MIN) HISTORY: FOOT PAIN RIGHT COMPARISON: None TECHNIQUE: DI ANKLE, COMPLETE(3VW MIN) FINDINGS/IMPRESSION: There is widening of both the medial and lateral clear spaces suggesting unstable ankle injury. There is a suspected displaced fracture of the proximal fibula, incompletely assessed. Dedicated additional radiographs of the fibula are suggested. The constellation of findings suggests Maisonneuve fracture.
--- NOTE | 2025-10-01 01:59 | Physician Documentation ---
History of Present Illness ~ Chief Complaint: Ankle pain Stated Complaint: RIGHT FOOT PAIN Time Seen by MD: 01:39 Primary Medical Doctor: Dr Jose De Jesus Bryan @ [facility] Patient presents to the emergency room with right ankle pain. She states she was wrestling around with her son in the house and suddenly she felt ankle pain fell down. No head strike. And able to bear weight. Tetanus witin 5 years: No (unknown) Medication Reconciliation Allergies: Coded Allergies: clindamycin (Verified Allergy, Unknown, 07/02/25) gluten (Unverified Allergy, Unknown, 07/02/25) ketorolac (Verified Allergy, Unknown, 07/02/25) Scheduled Aspirin (Aspir 81), 1 TAB PO DAILY, (Reported) Atorvastatin Calcium (Atorvastatin Calcium), 40 MG PO DAILY Clopidogrel Bisulfate (Clopidogrel), 75 MG PO DAILY Dicyclomine HCl (Dicyclomine HCl), 1 TAB PO Q6H Empagliflozin (Jardiance), 1 TAB PO DAILY, (Reported) Famotidine (Famotidine), 1 TAB PO BID, (Reported) Lisinopril (Lisinopril), 0.5 TAB PO HS, (Reported) Meloxicam (Meloxicam), 1 TAB PO HS, (Reported) Metformin Hcl* (Metformin ER*), 2 TAB PO BID, (Reported) Montelukast Sodium (Singulair), 1 TAB PO DAILY, (Reported) Ondansetron 8mg ODT (Ondansetron Odt), 1 TAB PO Q6H Scheduled PRN Clonazepam (Clonazepam), 1 TAB PO DAILY PRN for for anxiety/agitation, (Reported) Hydrocodone Bit/Acetaminophen 5/325 MG (Kiowa 5/325 MG), 1-2 TAB PO Q4-6 hours PRN for pain Past Medical History Past Medical History: Migraine, *CARDIOVASCULAR*, Hypertension, *GI/HEPATOBILIARY*, Constipation, Pancreatitis, Hernia, Diabetes, Thyroid (unspecified), *PSYCH*, Anxiety Past Surgical History: cholecystectomy, , orthopedic surgeries, tubal ligation Alcohol Use: None Drug Use: none Lives with: Family Lives In: Home Occupation: disabled Review of Systems ROS All review of systems negative except as per HPI Physical Exam Vital Signs: Temperature: 98.2, Source: Temporal, Heart Rate: 89, Respiratory Rate: 18, BP: 150/90, Pulse Oximetry: 100, Weight: 93.900 Oxygen Flow Rate: 0 General Appearance General: Patient is awake, alert, oriented x4 in no acute distress Head: Normocephalic and atraumatic. Eyes: Conjunctival normal. EOMI. PERRL. ENT: Mucous membranes moist. Neck: Supple, trachea is midline. Chest: Clear to auscultation bilaterally without rales, rhonchi, or wheezes. There is no accessory muscle use or retractions. Cardiac: RRR without murmurs, gallops, or rubs. Abd: Soft, nondistended, nontender, with normoactive bowel sounds. No guarding, rebound, or rigidity. Extremities: Left lower extremity normal, right lower extremity with swelling to ankle and tenderness to palpation to calf and ankle. 2+ dorsalis pedis pulse. Progress Results/Orders Results/Orders Orders - HUGH PRYOR MD Ankle, Complete(3vw Min) (10/01/25 01:08) Knee Limited (Ap/Lat) (10/01/25 02:01) Completed Orders - HUGH PRYOR MD Ankle, Complete(3vw Min) (10/01/25 01:08) Hydrocodone/Apap 5/325mg Tab (Kiowa 5/32 (10/01/25 00:52) Knee Limited (Ap/Lat) (10/01/25 02:01) Morphine 4mg/Ml Inj. (Morphine Inj.) (10/01/25 01:50) Ondansetron Disint. Tablet (Zofran Odt T (10/01/25 01:50) Hydrocodone/Apap 5/325mg Tab (Kiowa 5/32 (10/01/25 02:15) Medications Received in ER Medications (Trade) Dose Ordered Sig/Alireza Route PRN Reason Start Time Stop Time Status Last Admin Dose Admin (Kiowa 5/325mg tablet) 1 tab ONCE STAT PO 10/01/25 00:52 10/01/25 00:53 DC 10/01/25 01:27 1 TAB (morphine inj.) 4 mg ONCE ONCE IM 10/01/25 01:50 10/01/25 01:58 DC 10/01/25 02:02 4 MG (Zofran ODT tablet) 4 mg ONCE ONCE PO 10/01/25 01:50 10/01/25 01:52 DC 10/01/25 02:02 4 MG (Kiowa 5/325mg tablet) 2 tab ONCE ONCE PO 10/01/25 02:15 10/01/25 02:19 DC 10/01/25 02:54 2 TAB Vital Signs 10/01/25 10/01/25 00:44 03:12 Temp 98.2 98.6 Pulse 89 82 Resp 18 18 B/P (MAP) 150/90 142/86 Pulse Ox 100 99 O2 Flow Rate 0 Medical Decision Making Additional information obtaine: N/A Findings Patient presents to the emergency room with right ankle pain as per HPI. Differentials include but are not limited to fractures, dislocation, soft tissue injury, nerve or vessel injury. Physical exam is reassuring for strong pulses and good movement of toes. X-ray is consistent with Maisonneuve fracture. This was discussed with orthopedist, Dr. Barney, who that has taken down the patient's name in his instructed her to call his office the next morning to expedite intervention. ER precautions reviewed regarding symptoms of compartment syndrome. General Diff Dx:Considerations: Include: Abrasion, Contusion, Fracture, Hematoma, Laceration, Malunion, Neurovascular injury, Open fracture, Sprain, Ulcer, Other Knee Diff Dx:Considerations: Include: Abrasion, Arthritis, Contusion, DJD, Fracture-femur, Fracture-fibula, Fracture-patella, Fracture-tibia, Gout, Hematoma, Laceration, Meniscus injury, Neurovascular injury, Open fracture, Rheumatoid arthritis, Septic, Sprain, Sprain-MCL, Sprain-LCL, Sprain-ACL, Sprain-PCL, Other Ankle Diff Dx:Considerations: Include: Abrasion, Arthritis, Contusion, DJD, Fracture-metatarsal, Fracture-fibula, Fracture-tarsal, Fracture-tibia, Gout, Hematoma, Laceration, Malunion, Neurovascular injury, Nonunion, Open fracture, Osteomyelitis, Rheumatoid arthritis, Sprain, Septic, Ulcer, Other Foot Diff Dx:Considerations: Include: Abrasion, Arthritis, Cellulitis, Contusion, Dislocation, DJD, Fracture-metatarsal, Fracture-phalynx, Fracture- tarsal, Gout, Hematoma, Ingrown toenail, Laceration, Malunion, Neurovascular injury, Open fracture, Paronychia, Puncture, Rheumatoid, Sprain, Septic, Subungual hematoma, Ulcer, Other Toe Diff Dx:Considerations: Include: Abrasion, Cellulitis, Contusion, Dislocation, Felon, Fracture, Hematoma, Laceration, Neurovascular injury, Open fracture, Paronychia, Subungual hematoma, Other Departure Disposition: 01 HOME / SELF CARE / HOMELESS Impression: Primary Impression: Closed Maisonneuve fracture Condition: Stable Discharge Instructions: Tibial and Fibular Fractures Additional Instructions: Call Dr. Barney's office tomorrow morning to arrange expedited intervention. Return to the emergency room for uncontrolled pain were symptoms of compartment syndrome as discussed Referrals: NO PRIMARY CARE PROVIDER (PCP) IRVING BARNEY Jr., MD Prescriptions Ondansetron 8mg ODT (Ondansetron Odt) 8 Mg Tab.rapdis 1 TAB PO Q6H for nausea/vomiting for 3 Days, #12 TAB 0 Refills Prov: HUGH PRYOR MD 10/01/25 Hydrocodone Bit/Acetaminophen 5/325 MG (Kiowa 5/325 MG) 5 Mg/325 Mg Tablet 1-2 TAB PO Q4-6 hours PRN for pain, #12 TAB Prov: HUGH PRYOR MD 10/01/25 Education Educated: Patient Educated regarding: diagnosis, treatment, need for follow up Signature Scribe Signature: No scribe Attestation: The note accurately reflects work and decisions made by me.Hugh Pryor MD 10/01/25 02:27 HUGH PRYOR MD Oct 01, 2025 01:59
[2025-10-01] MEDS: ondansetron 4mg rapidly disintigrating tab PO ONE (02:02)
[2025-10-01] MEDS: morphine 4 MG/ML inj SYRINge IM ONE (02:02)
--- NOTE | 2025-10-01 02:40 | RADIOLOGY REPORT ---
EXAM: DI KNEE LIMITED (AP/LAT) CLINICAL INDICATION: suspected prox fibula fx RIGHT TECHNIQUE: DI KNEE LIMITED (AP/LAT) Comparison: None FINDINGS/IMPRESSION: There is an oblique mildly displaced fracture of the proximal fibular diaphysis. No additional fracture of the tibia or distal femur. No significant joint effusion.
[2025-10-01] MEDS: HYDROcodone/acetaminophen 5mg/325mg tablet PO ONE (02:54)
[2025-10-01] MEDS ORDERED: HYDR-3965 PO (03:02)
[2025-10-01] MEDS ORDERED: ONDA-245 PO (03:02)
[2025-10-01 03:12] VITALS: BP 142/86; PULSE 82; RESP 18; TEMP 98.6; O2SAT 99
== END 2025-10-01 03:15 | disposition home or self-care (01) ==
LOC: ER 00:39
DX: S82.861A Displaced Maisonneuve's fracture of right leg, initial encounter for closed fracture (principal); E11.9 Type 2 diabetes mellitus without complications; I10 Essential (primary) hypertension; G43.909 Migraine, unspecified, not intractable, without status migrainosus; Z87.19 Personal history of other diseases of the digestive system; Z88.1 Allergy status to other antibiotic agents; Z79.82 Long term (current) use of aspirin; Z88.8 Allergy status to other drugs, medicaments and biological substances; Z90.49 Acquired absence of other specified parts of digestive tract; Z98.51 Tubal ligation status; X58.XXXA Exposure to other specified factors, initial encounter; Y93.72 Activity, wrestling; Y92.89 Other specified places as the place of occurrence of the external cause; Y99.8 Other external cause status
CPT/HCPCS: 73560; 73610; 96372; 99284; J2270; L4360

== ENCOUNTER 2025-10-13 09:56 | Day surgery (SDC) | payer MEDICARE, MEDICAID ==
[~2025-10-13] VITALS: Ht 147.3 cm; Wt 94.1 kg
[2025-10-13] VITALS (14 sets, daily range): BP systolic 147–176; BP diastolic 78–104; PULSE 74–97; RESP 16; TEMP 98.5; O2SAT 89–100
[2025-10-13] MEDS: ceFAZolin 2gm/dext,iso 50mL 50 ML IV ONE (05:30)
[~2025-10-13 09:56] MED LIST changes: +ACET1TAB25 PO; -ATOR20TA66 PO; +BACL20TA2 PO; -CLON-369 PO; -CLOP75TA34 PO; -DICY20TA17 PO; -EMPA10TA PO; +EMPA25TA PO; +EREN70AU SUBCUT; +FAMO20TA8 PO; -FAMO40TA8 PO; +FEXO180T94 PO; +FOLI0.8C PO; +HYDR-3973 PO; +LISI10TA27 PO; -LISI20TA28 PO; -MELO-102 PO; -MONT-48 PO; +ONDA-245 PO; +RIME75TA PO; +THY60T PO
[2025-10-13 11:56] LABS: MEAN PLATELET VOLUME 7.8 FL (7.4-10.4); PRE OP HEMATOCRIT 41.5 % (35.0-45.0); PRE OP HEMOGLOBIN 13.8 g/dL (12.0-16.0); PRE OP PLATELET COUNT 356 X10'3 (140-440); PRE OP WHITE BLOOD COUNT 10.6 10'3 (4.8-10.8); RED CELL DISTRIBUTION WIDTH 13.5 % (11.5-14.5)
[2025-10-13] MEDS: ringers solution, lacted 1,000 ML IV SCH (12:04)
[2025-10-13 12:15] LABS: CREATININE 0.74 MG/DL (0.40-0.90); PRE OP ALT 18 U/L (30-65); PRE OP ANION GAP 11 (8-16); PRE OP AST 17 U/L (10-37); PRE OP BILIRUB, TOTAL 0.4 MG/DL (0.0-1.0); PRE OP GLUCOSE 109 MG/DL (70-104); PRE OP POTASSIUM 4.2 MMOL/L (3.4-5.1); PRE OP SODIUM 139 MMOL/L (135-145); TOTAL CARBON DIOXIDE 26.9 MMOL/L (24-32); eCRCL 59 ML/MIN; eGFR 83 ML/MIN
[2025-10-13 12:16] LABS: HCG SERUM QL POSITIVE
[2025-10-13] MEDS ORDERED: bacitracin 15gm ointment TP ONE (13:51)
[2025-10-13] MEDS ORDERED: BUPIVAcaine 2.5mg/ml inj 50ml vial (contains preservative) ONE (13:51)
[2025-10-13] MEDS ORDERED: MIDAZolam 1 MG/ML 5ML VIAL ONE (14:21)
[2025-10-13] MEDS ORDERED: fentaNYL /PF 50mcg/ml 5ml ampule ONE (14:35)
[2025-10-13] MEDS ORDERED: propofol inj 20 ML IV ONE (14:36)
[2025-10-13] MEDS ORDERED: LIDOcaine 1%/PF 5ML 10 MG/ML VIAL ONE (14:36)
[2025-10-13] MEDS ORDERED: fentaNYL/PF 50MCG/1 ML 2ML syringe IV PRN ×2 (15:05)
[2025-10-13] MEDS ORDERED: HYDROmorphone/PF 0.2 MG/ML SYRINGE IV PRN ×2 (15:05)
[2025-10-13] MEDS ORDERED: enalaprilat 1.25mg/ml 2ml vial IV PRN (15:05)
[2025-10-13] MEDS ORDERED: ringers solution, lacted 1,000 ML IV SCH (15:05)
[2025-10-13] MEDS ORDERED: labetalol 20mg/4ml (5mg/ml) syringe IV PRN (15:05)
--- NOTE | 2025-10-13 15:09 | ANESTHESIA RECORDS ---
Nerve Block Providers to CC ~ Diagnosis: Nerve Block requested by: LIBBY YUSUF DPKristin Neuraxial/Peripheral Nerve Block requested for Post-operative analgesia by Physician above DIAGNOSIS: Post-operative pain. (Body Area) Shoulder: [ ] Arm: [ ] Hand: [ ] Hip: [ ] Knee: [ ] Ankle: [____Right ] Foot: [ ] Leg: [ ] Abdomen: [ ] Other: [ ] Post-operative pain expected to be/is inadequately managed by oral or IV medicines. Regional anesthetic expected to facilitate rehabilitation and/or discharge from facility. Other:[ ] Procedure Performed: Popliteal Lateral: Right Time out Done?: Yes Time of Time out: 14:10 Procedure Details: PROCEDURE DETAILS: Risks, benefits and alternatives explained Informed consent obtained, and patient wishes to proceed Conscious sedation with indicated monitors Patient positioned, pertinent anatomy defined, sterile technique used Needle used: [ ] 3 1/8 inch Stimuplex Ultra 22ga [x ] 4 inch Stimuplex Ultra 20ga [ ] 6 inch Stimuplex Ultra 20ga [ ] 6 inch, Quikbloc over the needle catheter set 20ga [ ] 4 inch Quikbloc over the needle catheter set 20ga [ ]Other: [ ] Loss of twitch @ [ 0.4 ____]mA [x ] Single Injection [ ] Catheter Ultrasound Guidance Used: [x ] Yes [ ] No Attempts:[ once ] Medicines injected: [x ]Clonidine Amt:[ 70 mcgs ____] [x ]Dexamethasone Amt:[____4 mgs ] [x ]Ropivacaine Amt:[ 0.5% 30 cc ] [ ]Bupivacaine Amt:[ ] [ ]Lidocaine Amt:[ ] [ ]Exparel 1.33%:[ ] [ ]Epinephrine Amt[ ] [ ]Other: [ ] Intermittent aspiration during local anesthetic administration No symptoms of intraneural or intravenous injection Patient tolerated procedure well Comments Right Popliteal fossa Block Pt in Lt lateral position with Left Leg flexed at 90 Degrees. Lateral approach. Ultrasound probe placed back of thigh 2 inches above the knee joint. Easy visualization of the Sciatic nerve. 1% xylocaine local anesthetic. Easy visualization of Spreading of local anesthetic anterior and posterior to the Sciatic nerve sub paraneurally inside sciatic nerve sheath. Meaningful conversation t throughout. No Pain or discomfort during injection. TRIPURANENI,ALIE MD Oct 13, 2025 15:09
[2025-10-13] MEDS: BUPIVAcaine/PF 5 MG/ML 10ML VIAL IJ ONE (15:21)
[2025-10-13] MEDS ORDERED: ondansetron/PF 4mg/2ml inj ONE (15:40)
[2025-10-13] MEDS ORDERED: ROPIVAcaine 0.5% (5mg/ml) 30ml vial ONE (15:41)
[2025-10-13] MEDS: morphine 4 MG/ML inj SYRINge IV PRN (16:16)
[2025-10-13] MEDS: acetaminophen 1,000mg/100ml IV 100 ML IV PRN (16:16)
[2025-10-13] MEDS: ondansetron/PF 4mg/2ml inj IV PRN (17:03)
--- NOTE | 2025-10-14 01:11 | OPERATIVE REPORT ---
DATE OF SURGERY: 10/13/2025 DICTATING PHYSICIAN: CLIVE ESCUDERO DPM PREOPERATIVE DIAGNOSES: Right ankle fracture, right ankle syndesmosis disruption and right ankle deltoid disruption and right ankle instability. POSTOPERATIVE DIAGNOSES: Right ankle fracture, right ankle syndesmosis disruption and right ankle deltoid disruption and right ankle instability. PROCEDURES PERFORMED: * Syndesmosis stress examination * Deltoid ligament stress examination * Syndesmosis stabilization * Deltoid ligament repair and augmentation. This is all on the right ankle. SURGEON: Clive Escudero DPM DIRECTOR TELEVISION: Dr. Joseph Mata DPM fellow, assistance was needed to decrease tourniquet time, help with deficiency and retraction throughout the entirety of the procedure. ANESTHESIA: General. HEMOSTASIS: A thigh tourniquet at 300 mmHg. FINDINGS: None. COMPLICATIONS: None. SPECIMENS: None. ESTIMATED BLOOD LOSS: Less than 15 mL. HARDWARE: We used Sandwich anchors. INDICATIONS: The patient was presented to my clinic with the above-listed complaints, which have been unresponsive to conservative treatment options. Thus, surgical options have been offered along with all potential risks, complications, and surgical outcomes being fully explained to the patient with understanding. No guarantees were given. Clinical and radiographic data correlated with the above diagnosis. The patient sustained a Maisonneuve type fibular fracture with syndesmosis instability. There was noted to be increasing gravity stress instability at the ankle joint. We talked to the patient about the biomechanics of the patient's ankle joint. We recommended surgical intervention in order to achieve appropriate stability and placement of the patient's ankle joint. The patient ultimately agreed to this, but had major concerns about the use of hardware. She states that she is a [employer], so she does not want any hardware. She seemed to change some of her ideas today before surgical intervention and we did explain to her that if we needed to place more hardware, then we would, but the goal was to better stabilize her ankle as there was gross instability. Ultimately, she was hoping and wishing for no hardware construct, which limited some of our constructs that we could use. She understood that this is a hard procedure in order to fix as she is 13 days post injury. She already has a severe flatfoot and was being treated for posterior tibial tendon dysfunction previously, so this automatically puts her at increased stress and valgus at this ankle. I did explain to her the risks and benefits and the patient wished to proceed. DESCRIPTION OF PROCEDURE: The patient was brought to the operating room and placed on the operating table in the supine position. The patient was induced under general anesthesia. The foot and ankle were prepped and draped in the usual aseptic fashion. Previously applied thigh tourniquet was inflated to 300 mmHg after a timeout was called and preoperative antibiotics were given and dosed appropriately. Stress examination of the syndesmosis and the deltoid. We then used fluoroscopic imaging with a big C-arm in order to stress the syndesmosis and deltoid. We did this with fluoroscopic guidance with manual manipulation and it was noted that there was increase in diastasis of the tib-fib complex as well as of the tib-talar complex medially for a deltoid. It was then decided that both syndesmosis and deltoid was going to be appropriate. We mapped out our incision on the lateral aspect of the patient's fibula and a standard lateral incision was then made using a #15 blade. We carefully dissected down to the level of subcutaneous tissue with care being taken to identify and retract all vital neurovascular structures. After this, we then dissected down to the level of deep fascia and bone. We identified the lateral fibula. After this, we then used a clamp in order to clamp the tib-fib complex into an appropriate reduced position. Using our novel technique with Sandwich anchors, we then placed a byuvlmm-cpt-nncafem drill of the fibula from lateral to medial. We then used a separate drill for a 2.5 anchor into the distal lateral tibia. We then malleted our 2.5 anchors into the distal tibia. We then threaded our attached sutures through our drill holes of our fibula. Holding our fibula and tib-fib diastasis closed and syndesmosis reduced, we then placed three 4.75 Sandwich anchors using a tenodesis technique with the suture intact. We did this until there was excellent stability. We then malleted these in appropriately. After this, we then stressed the patient's syndesmosis and it was noted that there was no increase in diastasis. The patient's tib-fib overlap had drastically improved. After this, we then made a separate incision over the deltoid ligamentous complex. We made this incision using a #15 blade and carefully dissected down to the reach of the level of the ligamentous complex. There was hematoma within this area signifying that there was rupture and damage, so therefore, we cleaned out the hematoma appropriately. After this, we then measured for an anchor of a 4.75 mm Sandwich anchor. Intraoperative fluoroscopic imaging confirmed the position, which we malleted into the appropriate position of the distal medial malleolar region. We then used the attached SutureTape and FiberWire in order to take large bites of the patient's deep and superficial deltoid ligamentous complex. The patient's ankle was then held in an inverted position and then we tied down the sutures very tightly. After this, we then re-stressed the patient's deltoid and there was no increase in instability, so therefore, we concluded our procedure. We flushed all of our incisions with copious amounts of sterile normal saline. We took final fluoroscopic imaging. The incisions were then closed with 3-0 Vicryl in subcutaneous tissue and 3-0 nylon was used for skin in a horizontal mattress technique. The incision was then dressed with triple antibiotic followed by Adaptic, 4 x 4s and Webril. The patient was placed in a well-padded posterior splint with the foot held at a neutral inverted position. The tourniquet was inflated. The patient was then taken out of general anesthesia and placed in the PACU with vital signs stable and vascular status intact to the operative foot. The patient is going to be nonweightbearing to the operative foot and was instructed to follow up with me approximately 2 weeks after surgery. The entire case was performed in a teaching fashion. I was available pre and postoperatively to answer questions of the patient and her family. It was determined that during this procedure there was extension of tearing into the common sheath of the posterior tibial tendon sheath. We did identify there was hemorrhagic tissue within the posterior tibial tendon. The posterior tibial tendon did have some damage within it. This appeared to be more chronic and not acute from the injury. This is likely from her posterior tibial tendon dysfunction. We flushed some of the tenosynovitis as we could out of the common sheath. After this, we then closed our sheath appropriately. CLIVE ESCUDERO DPM TID: [id number] RECEIPT: [id number] FABIOLA/CHARLI
== END 2025-10-13 18:37 | disposition home or self-care (01) ==
LOC: PAS 09:56
PROVIDERS: ATTEND Podiatrist Foot & Ankle Surgery
DX: S82.861A Displaced Maisonneuve's fracture of right leg, initial encounter for closed fracture (principal); S93.421A Sprain of deltoid ligament of right ankle, initial encounter; M25.371 Other instability, right ankle; G89.18 Other acute postprocedural pain; E11.9 Type 2 diabetes mellitus without complications; E66.01 Morbid (severe) obesity due to excess calories; K21.9 Gastro-esophageal reflux disease without esophagitis; G43.909 Migraine, unspecified, not intractable, without status migrainosus; G47.33 Obstructive sleep apnea (adult) (pediatric); Z86.73 Personal history of transient ischemic attack (TIA), and cerebral infarction without residual deficits; Z87.891 Personal history of nicotine dependence; Z79.1 Long term (current) use of non-steroidal anti-inflammatories (NSAID); Z79.84 Long term (current) use of oral hypoglycemic drugs; Z79.890 Hormone replacement therapy; Z79.899 Other long term (current) drug therapy; Z90.49 Acquired absence of other specified parts of digestive tract; Z98.891 History of uterine scar from previous surgery; Z98.890 Other specified postprocedural states; Z68.41 Body mass index [BMI] 40.0-44.9, adult; Z88.1 Allergy status to other antibiotic agents; Z88.8 Allergy status to other drugs, medicaments and biological substances; X58.XXXA Exposure to other specified factors, initial encounter; Y92.89 Other specified places as the place of occurrence of the external cause; Y93.89 Activity, other specified; Y99.8 Other external cause status
CPT/HCPCS: 27695; 27829; 36415; 64445; 73600; 80053; 82948; 84702; 84703; 85025; A4618; A6223; A6253; A6402; A6449; A7000; C1713; J0131; J0665; J2250; J2270; J2405; J2704; J2795; J3010; J3490; J7030; J7120; Z7506; Z7508; Z7512; Z7610; 76000

== ENCOUNTER 2025-10-31 14:00 | Day surgery (SDC) | payer MEDICARE, MEDICAID ==
[2025-10-30 12:06] LABS: MEAN PLATELET VOLUME 8.6 FL (7.4-10.4); PRE OP HEMATOCRIT 43.1 % (35.0-45.0); PRE OP HEMOGLOBIN 14.1 g/dL (12.0-16.0); PRE OP PLATELET COUNT 272 X10'3 (140-440); PRE OP WHITE BLOOD COUNT 8.0 10'3 (4.8-10.8); RED CELL DISTRIBUTION WIDTH 13.3 % (11.5-14.5)
[2025-10-30 12:56] LABS: HCG SERUM QL POSITIVE
[2025-10-30 13:05] LABS: CREATININE 0.85 MG/DL (0.40-0.90); PRE OP ALT 22 U/L (30-65); PRE OP ANION GAP 9 (8-16); PRE OP AST 14 U/L (10-37); PRE OP BILIRUB, TOTAL 0.4 MG/DL (0.0-1.0); PRE OP GLUCOSE 123 MG/DL (70-104); PRE OP POTASSIUM 4.4 MMOL/L (3.4-5.1); PRE OP SODIUM 140 MMOL/L (135-145); TOTAL CARBON DIOXIDE 29.7 MMOL/L (24-32); eGFR 71 ML/MIN
[~2025-10-31] VITALS: Ht 147.3 cm; Wt 92.2 kg
[2025-10-31] VITALS (12 sets, daily range): BP systolic 119–165; BP diastolic 78–100; PULSE 61–80; RESP 10–18; TEMP 96.8; O2SAT 96–99
[2025-10-31] MEDS: ceFAZolin 2gm/dext,iso 50mL 50 ML IV ONE (05:30)
[~2025-10-31 14:00] MED LIST changes: -EREN70AU SUBCUT; -HYDR-3973 PO
[2025-10-31] MEDS: ringers solution, lacted 1,000 ML IV SCH (14:42)
[2025-10-31] MEDS: ondansetron/PF 4mg/2ml inj IV ONE (15:14)
[2025-10-31] MEDS: scopolamine 1MG/72H patch 1 PATCH PATCH.TD.3 TD SCH (16:00)
[2025-10-31] MEDS ORDERED: cloNIDine hcl/PF 100mcg/ml inj ONE (16:09)
[2025-10-31] MEDS ORDERED: fentaNYL/PF 50MCG/1 ML 2ML syringe ONE (16:14)
[2025-10-31] MEDS ORDERED: midazolam 1 mg/ML 2ml injection ONE (16:14)
[2025-10-31] MEDS ORDERED: propofol inj 20 ML IV ONE (16:15)
[2025-10-31] MEDS ORDERED: dexamethasone sod phosphate 4mg/ml inj. ONE (16:23)
[2025-10-31] MEDS ORDERED: bacitracin 15gm ointment TP ONE (17:08)
[2025-10-31] MEDS ORDERED: ROPIVAcaine 0.5% (5mg/ml) 30ml vial ONE ×2 (17:15)
[2025-10-31] MEDS ORDERED: ondansetron/PF 4mg/2ml inj IV PRN (17:40)
[2025-10-31] MEDS ORDERED: acetaminophen 1,000mg/100ml IV 100 ML IV PRN (17:40)
[2025-10-31] MEDS ORDERED: hydrALAZINE 20mg/ml inj. IV PRN (17:40)
[2025-10-31] MEDS ORDERED: fentaNYL/PF 50MCG/1 ML 2ML syringe IV PRN ×2 (17:40)
[2025-10-31] MEDS ORDERED: ringers solution, lacted 1,000 ML IV SCH (17:40)
[2025-10-31] MEDS: morphine 4 MG/ML inj SYRINge IV PRN (18:20)
[2025-10-31] MEDS: oxyCODONE/APAP 5-325mg tablet PO ONE (18:45)
[2025-10-31] MEDS: labetalol 20mg/4ml (5mg/ml) syringe IV PRN (19:05)
--- NOTE | 2025-10-31 19:13 | OPERATIVE REPORT ---
DATE OF SURGERY: 10/31/2025 DICTATING PHYSICIAN: Joseph Mata DPM PREOPERATIVE DIAGNOSES: Syndesmotic instability, right ankle, and deltoid insufficiency, right ankle. PROCEDURES PERFORMED: * Syndesmotic stabilization, right ankle * Deltoid repair, right ankle SURGEON: Clive Escudero DPM COOK CAMP: Joseph Mata DPM, PGY4. Fellow was required to decrease tourniquet time and aid with retraction throughout the duration of the procedure. ANESTHESIA: Dr. Arguelles. HEMOSTASIS: Achieved with a thigh tourniquet inflated to 300 mmHg and electrocautery. ESTIMATED BLOOD LOSS: Less than 5 mL. COMPLICATIONS: None. INDICATIONS FOR PROCEDURE: This patient had presented in the postoperative period with continued tibiofibular diastasis and medial clear space widening following an open reduction internal fixation following a Maisonneuve fracture. Due to this instability, it was recommended to proceed with surgical intervention in order to stabilize this and this is the route she has elected to undergo. DESCRIPTION OF PROCEDURE: The patient was brought to the operating room and positioned in the supine position with a contralateral SCD on the nonoperative extremity. A timeout was performed and anesthesia then conducted a regional block. The right lower extremity was prepped and draped in the usual sterile fashion. Surgical pause was performed, and the right lower extremity was exsanguinated and the tourniquet was inflated to 300 mmHg. Attention was initially directed medially where the previously made incision was re-incised and all sutures were removed. Dissection was deepened through subcutaneous tissues taking care to cautery out superficial bleeders and protect all pertinent neurovasculature. The underlying deep and superficial deltoid ligaments were exposed and there was noted to be previously implanted FiberTape suture from the prior deltoid repair. This was excised and the posterior tibial tendon sheath was then examined in order to confirm that this has been posterior and not impeding reduction to the medial malleolus. Attention was then directed medially about the ankle joint, which was copiously irrigated and small amounts of hematoma were evacuated. Once it was felt that this area was thoroughly debrided, attention was then directed toward the lateral aspect of the ankle where the previous incision about the lateral malleolus was re-incised and subcutaneous tissues were protected of all neurovasculature and superficial bleeders were cauterized. A periosteal incision was then made directly to bone and periosteum was elevated from the medial and lateral aspect of the underlying fibula. A straight 1/3 tubular plate was then applied and a 4.0-mm cancellous locking screw was applied distally with a 3.5-mm locking screw applied proximally. Using fluoroscopic guidance, 3.5-mm nonlocking screws were inserted in a ladder-type fashion in a quantity of 4. Prior to inserting these screws, a Mukherjee clamp was applied and the syndesmosis was noted to reduce with excellent mormon of the tibiofibular overlap as well as medial clear space. These screws were then inserted. Attention was then redirected toward the medial aspect of the medial malleolus where a drill hole was made for a 4.75 mm loaded Biointegrative anchor with SutureTape. The deltoid ligament was then imbricated under mild forced inversion. The ankle was then stressed both via a cotton hook test as well as an eversion test and there was noted to be a congruous ankle mortise with stability upon stress eversion and upon dorsiflexory external rotation stress examination. Both incisions were copiously irrigated with normal sterile saline and the lateral incision was closed in layers consisting of 3-0 Vicryl for subcutaneous tissue and 3-0 nylon in a horizontal mattress type fashion for skin. The medial incision was copiously irrigated and the deltoid ligament was then imbricated with 0 Vicryl in an gsue-zsi-qvoj-type fashion, 3-0 Vicryl was utilized to close subcutaneous tissue, and 3-0 nylon was utilized in a baseball-type stitch running interlocking suture for skin. The tourniquet was deflated noting excellent vascular reperfusion in digits 1 through 5. Dressings were applied consisting of Bacitracin, Adaptic, 4 x 4s, Webril, an AO plaster splint, and Alex bandage. The patient was taken to the PACU with vital signs stable throughout the procedure and vital signs stable into the recovery area. She will follow up in the postoperative setting in the office of Dr. Clive Escudero. LUZ Barnhart DPM TID: [id number] RECEIPT: [id number] MAGUI/ERIC
== END 2025-10-31 19:24 | disposition home or self-care (01) ==
LOC: PAS 14:00
PROVIDERS: ATTEND Podiatrist Foot & Ankle Surgery
DX: S93.431A Sprain of tibiofibular ligament of right ankle, initial encounter (principal); M25.371 Other instability, right ankle; G89.18 Other acute postprocedural pain; I10 Essential (primary) hypertension; E11.9 Type 2 diabetes mellitus without complications; E66.9 Obesity, unspecified; G47.33 Obstructive sleep apnea (adult) (pediatric); K21.9 Gastro-esophageal reflux disease without esophagitis; G43.909 Migraine, unspecified, not intractable, without status migrainosus; Z87.891 Personal history of nicotine dependence; Z86.73 Personal history of transient ischemic attack (TIA), and cerebral infarction without residual deficits; Z90.49 Acquired absence of other specified parts of digestive tract; Z98.891 History of uterine scar from previous surgery; Z98.890 Other specified postprocedural states; Z68.41 Body mass index [BMI] 40.0-44.9, adult; Z88.1 Allergy status to other antibiotic agents; Z88.8 Allergy status to other drugs, medicaments and biological substances; X58.XXXA Exposure to other specified factors, initial encounter; Y93.89 Activity, other specified; Y92.89 Other specified places as the place of occurrence of the external cause; Y99.8 Other external cause status
CPT/HCPCS: 27695; 27829; 36415; 64445; 73600; 80053; 82948; 84703; 85025; A4618; A6223; A6253; A6402; A6449; A7000; C1713; J0735; J1100; J2250; J2270; J2405; J2704; J2795; J3010; J3490; J7030; J7120; Z7506; Z7508; Z7512; Z7610; 76000